=== PATIENT | male | born 1980 | race Caucasian/White ===

== ENCOUNTER 2016-10-03 22:11 | Emergency (ER) | payer MEDICAID ==
[2016-10-03] MEDS ORDERED: Sodium Chloride 0.9% 1,000 ML IV ONE (22:16)
[2016-10-03 22:47] VITALS: BP 143/96
[2016-10-03 22:53] LABS: ACETAMINOPHEN < 10 ug/mL (10-30)
[2016-10-03] MEDS ORDERED: Sodium Chloride 0.9% 10 ML Syringe FLUSH PRN (23:02)
--- NOTE | 2016-10-04 00:40 | EDM.PDOC ---
[id number] 4d GENERAL Time Seen by Provider: 10/03/16 22:11 Source: Reports: Patient, EMS Exam Limitations: Reports: No limitations - History of Present Illness INITIAL COMMENTS - FREE TEXT/NARRATIVE: 35 manjarrez.o.w.m with a h/o manic depressive disorder was brought to the ed after he attempted suicide after sniffling dust off fume. Pt passed out for a few sec. and was brought to the ed then. Pt is no Ox3 and denied any physical issues Onset of Symptoms: Reports: today Symptom Onset Date: 10/03/16 Symptom Onset Time: 20:00 Duration of Symptoms: Reports: Hour(s): Severity: mild Context, Behavioral Health: Reports: other (Manic depressive disorder) Associated Symptoms: Reports: depression, suicidal thought - Related Data Allergies Allergy/AdvReac Type Severity Reaction Status Date / Time mirtazapine [From Remeron] Allergy Change Verified 10/03/16 22:30 Mental Status quetiapine fumarate Allergy Change Verified 10/03/16 22:30 [From Seroquel] Mental Status Home Medications: Home Meds clonazePAM [Clonazepam] 1 mg PO TID PRN 08/03/13 [History] Albuterol Sulfate [Albuterol Sulfate HFA] 2 puff INH Q4HR PRN 09/14/14 [History] Bifidobacterium Infantis [Align] 1 cap PO DAILY 09/14/14 [History] Lidocaine 5% [Lidoderm 5%] 1 patch TOP DAILY PRN 09/14/14 [History] Multivitamin/Iron/Folic Acid [Centrum Complete Multivit] 1 tab PO DAILY [History] Ondansetron [Zofran ODT] 4 mg PO Q4H PRN 09/14/14 [History] ARIPiprazole [Abilify] 10 mg PO DAILY 05/28/15 [History] Omeprazole [Prilosec] 40 mg PO DAILY 05/28/15 [History] Pramipexole [Mirapex] 0.5 mg PO BEDTIME 05/28/15 [History] Tamsulosin [Tamsulosin 24 Hr] 0.4 mg PO BEDTIME 05/28/15 [History] Vortioxetine Hydrobromide [Brintellix] 40 mg PO DAILY 05/28/15 [History] chlorproMAZINE [Thorazine] 200 mg PO BEDTIME 05/28/15 [History] Past Medical History HEENT History: Reports: Impaired vision Cardiovascular History: Reports: Hypertension Psychiatric History: Reports: Anxiety, Bipolar, Depression, Panic attack Other Psychiatric History: hx ETOH abuse Other Dermatologic History: hx dermatitis - Past Surgical History Other Male Surgeries/Procedures: Kidney stent Social & Family History - Tobacco Use Smoking Status *Q: Current Every Day Smoker Years of Tobacco use: 20 Packs/Tins Daily: 1 Used Tobacco, but Quit: No - Caffeine Use Caffeine Use: Reports: Energy drinks, Soda - Alcohol Use Days Per Week of Alcohol Use: 0 (relapses once in 6 yrs dry alcoholic) - Recreational Drug Use Recreational Drug Use: No Recreational Drug Type: Reports: Inhalants (Glues, Solvents, Aerosols) Other Recreational Drug Type: last taken today - Living Situation & Occupation Living situation: Reports: , with family Occupation: unemployed ED ROS GENERAL - Review of Systems Review Of Systems: See Below Constitutional: Reports: no symptoms HEENT: Reports: No symptoms Respiratory: Reports: No Symptoms Cardiovascular: Reports: No symptoms Endocrine: Reports: no symptoms GI/Abdominal: Reports: No symptoms : Reports: no symptoms Musculoskeletal: Reports: no symptoms Skin: Reports: no symptoms Neurological: Reports: No Symptoms Psychiatric: Reports: Depression Hematologic/Lymphatic: Reports: no symptoms Immunologic: Reports: no symptoms ED EXAM, BEHAVIORAL HEALTH - Physical Exam Exam: See Below Exam Limited By: No limitations General Appearance: alert, WD/WN, no apparent distress Eye Exam: bilateral eye: normal inspection Ears: normal external exam, normal canal, hearing grossly normal Nose: normal inspection, normal mucosa Throat/Mouth: Normal inspection, Normal lips, Normal teeth Head: atraumatic, normocephalic Neck: normal inspection, supple, non-tender, full range of motion Respiratory/Chest: no respiratory distress, lungs clear, normal breath sounds, no accessory muscle use Cardiovascular: normal peripheral pulses, regular rate, rhythm, no edema, no gallop, no JVD, no murmur, no rub GI/Abdominal: normal bowel sounds, soft, non tender, no organomegaly (Male) Exam: Deferred Rectal (Males) Exam: Deferred Back Exam: normal inspection, full range of motion Extremities: normal inspection, normal range of motion, non-tender, no pedal edema Neurological: alert, normal mood/affect, CN II-XII intact, normal cognition Psychiatric: depressed mood Skin Exam: Warm, Dry, Intact, Normal color, No rash EKG INTERPRETATION EKG Date: 10/04/16 Time: 00:35 Rhythm: NSR Lookout: LAD-left axis deviation P-wave: present QRS: wide ST-T: normal QT: normal Comparison: NA - no prior EKG COURSE, BEHAVIORAL HEALTH COMP - Course Vital Signs: Last Vital Signs Temp 37.1 C 10/03/16 22:11 Pulse 91 10/03/16 22:11 Resp 15 10/03/16 22:11 BP 143/96 H 10/03/16 22:11 Pulse Ox 96 10/03/16 22:11 35 manjarrez.o.w.m with a h/o manic depressive disorder was brought to the ed after he attempted suicide after sniffling dust off fume. Pt passed out for a few sec. and was brought to the ed then. Pt is no Ox3 and denied any physical issues PE: Depressed mood Labs: UDS was neg. WBC was 16k potassium as 3.3 Consultation: Poison control: Dustoff fume is Harmless pt can go home if stable. Psych conultation: Pt was evaluated by psych via telemedicine: Recommended to transfer pt to [facility]. That facility has an open bed did not accept the Pt, however. Reexam: Improved, stable while here in the ed. Plan: Transfer to [facility] in [place], [place] Dr. Tavares accepted the pt for further care (as per KOLE Caballero). Pt will be taken by [facility] to [facility] Orders, Labs, Meds: Laboratory Tests 10/03/16 10/03/16 10/03/16 Range/Units 22:20 22:20 22:30 WBC 16.2 H (4.5-12.0) X10-3/uL RBC 5.38 (4.30-5.75) x10(6)uL Hgb 16.6 H (11.5-15.5) g/dL Hct 48.1 (30.0-51.3) % MCV 89.4 (80-96) fL MCH 30.9 (27.7-33.6) pg MCHC 34.6 (32.2-35.4) g/dL RDW 12.2 (11.5-15.5) % Plt Count 302 (125-369) X10(3)uL MPV 8.3 (7.4-10.4) fL Neut % (Auto) 84.0 H (46-82) % Lymph % (Auto) 12.9 L (13-37) % [place] % (Auto) 1.8 L (4-12) % Eos % (Auto) 1 (1.0-5.0) % Baso % (Auto) 1 (0-2) % Neut # (Auto) 13.6 H (1.6-8.3) # Lymph # (Auto) 2.1 (0.6-5.0) # [place] # (Auto) 0.3 (0.0-1.3) # Eos # (Auto) 0.1 (0.0-0.8) # Baso # (Auto) 0.1 (0.0-0.2) # Sodium (135-145) mmol/L Potassium (3.5-5.3) mmol/L Chloride (100-110) mmol/L Carbon Dioxide (23-29) mmol/L BUN (5-20) mg/dL Creatinine (0.6-1.3) mg/dL Est Cr Clr Drug Dosing mL/min Estimated GFR (MDRD) (>60) BUN/Creatinine Ratio (9-20) Glucose (80-116) mg/dL Calcium (8.6-10.2) mg/dL Urine Color Yellow (YELLOW) Urine Appearance Clear (CLEAR) Urine pH 6.5 (5.0-6.5) Ur Specific Cameron 1.015 (1.010-1.025) Urine Protein Negative (NEGATIVE) mg/dL Urine Glucose (UA) Normal (NEGATIVE) mg/dL Urine Ketones Negative (NEGATIVE) mg/dL Urine Occult Blood Negative (NEGATIVE) Urine Nitrite Negative (NEGATIVE) Urine Bilirubin Negative (NEGATIVE) Urine Urobilinogen Normal (NEGATIVE) mg/dL Ur Leukocyte Esterase Negative (NEGATIVE) Urine RBC 0-5 (0) Urine WBC 0-5 (0) Ur Squamous Epith Cells Rare (NS,R,O) Urine Bacteria Few H (NS) Urine Mucus Few H (NS) Salicylates (5.0-25.0) mg/dL Urine Opiates Screen Negative (NEGATIVE) Ur Oxycodone Screen Negative (NEGATIVE) Ur Propoxyphene Screen Negative (NEGATIVE) Acetaminophen (10-30) ug/mL Ur Barbituates Screen Negative (NEGATIVE) Ur Tricyclics Screen Negative (NEGATIVE) Ur Phencyclidine Scrn Negative (NEGATIVE) Ur Amphetamine Screen Negative (NEGATIVE) Urine MDMA Screen Negative (NEGATIVE) U Benzodiazepines Scrn Negative (NEGATIVE) U Cocaine Metab Screen Negative (NEGATIVE) U Marijuana (THC) Screen Negative (NEGATIVE) Ethyl Alcohol (<0.01) % 10/03/16 10/03/16 Range/Units 22:30 22:30 WBC (4.5-12.0) X10-3/uL RBC (4.30-5.75) x10(6)uL Hgb (11.5-15.5) g/dL Hct (30.0-51.3) % MCV (80-96) fL MCH (27.7-33.6) pg MCHC (32.2-35.4) g/dL RDW (11.5-15.5) % Plt Count (125-369) X10(3)uL MPV (7.4-10.4) fL Neut % (Auto) (46-82) % Lymph % (Auto) (13-37) % [place] % (Auto) (4-12) % Eos % (Auto) (1.0-5.0) % Baso % (Auto) (0-2) % Neut # (Auto) (1.6-8.3) # Lymph # (Auto) (0.6-5.0) # [place] # (Auto) (0.0-1.3) # Eos # (Auto) (0.0-0.8) # Baso # (Auto) (0.0-0.2) # Sodium 135 (135-145) mmol/L Potassium 3.3 L (3.5-5.3) mmol/L Chloride 98 L D (100-110) mmol/L Carbon Dioxide 29 (23-29) mmol/L BUN 14 (5-20) mg/dL Creatinine 1.0 (0.6-1.3) mg/dL Est Cr Clr Drug Dosing 96.40 mL/min Estimated GFR (MDRD) > 60 (>60) BUN/Creatinine Ratio 14.0 (9-20) Glucose 119 H D (80-116) mg/dL Calcium 9.4 (8.6-10.2) mg/dL Urine Color (YELLOW) Urine Appearance (CLEAR) Urine pH (5.0-6.5) Ur Specific Cameron (1.010-1.025) Urine Protein (NEGATIVE) mg/dL Urine Glucose (UA) (NEGATIVE) mg/dL Urine Ketones (NEGATIVE) mg/dL Urine Occult Blood (NEGATIVE) Urine Nitrite (NEGATIVE) Urine Bilirubin (NEGATIVE) Urine Urobilinogen (NEGATIVE) mg/dL Ur Leukocyte Esterase (NEGATIVE) Urine RBC (0) Urine WBC (0) Ur Squamous Epith Cells (NS,R,O) Urine Bacteria (NS) Urine Mucus (NS) Salicylates < 4.0 L (5.0-25.0) mg/dL Urine Opiates Screen (NEGATIVE) Ur Oxycodone Screen (NEGATIVE) Ur Propoxyphene Screen (NEGATIVE) Acetaminophen < 10 L (10-30) ug/mL Ur Barbituates Screen (NEGATIVE) Ur Tricyclics Screen (NEGATIVE) Ur Phencyclidine Scrn (NEGATIVE) Ur Amphetamine Screen (NEGATIVE) Urine MDMA Screen (NEGATIVE) U Benzodiazepines Scrn (NEGATIVE) U Cocaine Metab Screen (NEGATIVE) U Marijuana (THC) Screen (NEGATIVE) Ethyl Alcohol < 0.01 (<0.01) % Medications Discontinued Medications Generic Name Dose Route Start Last Admin Trade Name Freq PRN Reason Stop Dose Admin Sodium Chloride 1,000 mls @ 999 mls/hr 10/03/16 22:16 10/03/16 22:53 Normal Saline IV 10/03/16 23:16 999 mls/hr .BOLUS ONE Administration Sodium Chloride 10 ml 10/03/16 23:02 10/03/16 23:04 Saline Flush FLUSH 10 ml ASDIRECTED PRN Administration Keep Vein Open Departure - Departure Time of Disposition: 10:03 Disposition: DC/Tfer to Psych Hosp/Unit 65 Condition: good Clinical Impression: Bipolar 1 disorder Referrals: Tejas Dia MD [Primary Care Provider] - Forms: ED Department Discharge Additional Instructions: Please go straight to [facility] [place], by [facility] for further eval. and Tx
== END 2016-10-04 10:15 ==
LOC: FB.ED 22:11
DX: F31.9 Bipolar disorder, unspecified (principal); I10 Essential (primary) hypertension; F41.9 Anxiety disorder, unspecified; F17.210 Nicotine dependence, cigarettes, uncomplicated; Z88.8 Allergy status to other drugs, medicaments and biological substances; Z79.899 Other long term (current) drug therapy
CPT/HCPCS: 36415; 80048; 80305; 81001; 85025; 93005; 96360; 99285; G0480; J7040; J7050

== ENCOUNTER 2017-12-01 13:35 | Emergency (ER) | payer MEDICARE, OTHER ==
[2017-12-01 14:23] VITALS: BP 125/90
--- NOTE | 2017-12-01 23:12 | ER ---
DATE SEEN: 12/01/2017 REASON FOR VISIT: Laceration. HISTORY OF PRESENT ILLNESS: This is a 37-year-old, who had a laceration to the right hand while working with a tool at home. He does not remember his last tetanus. ALLERGIES: Reviewed. PHYSICAL EXAMINATION: VITAL SIGNS: He has no abnormal vital signs. SKIN: The right hand on the lateral aspect showed a superficial laceration about 2 cm in size. IMPRESSION: My final impression is simple laceration. PLAN: The laceration was closed by Dermabond glue with no complications. Time seen was 1345 hours. /[id number] TN/MODL
== END 2017-12-01 14:15 | disposition home or self-care (01) ==
LOC: FB.ED 13:35
DX: S61.411A Laceration without foreign body of right hand, initial encounter (principal); W27.8XXA Contact with other nonpowered hand tool, initial encounter
CPT/HCPCS: 12001; 99281; 99283